=== PATIENT | male | born 1985 | race Caucasian/White ===

== ENCOUNTER 2017-05-26 21:18 | Emergency (ER) | payer OTHER ==
[~2017-05-26] VITALS: Ht 170.2 cm; Wt 119.9 kg
[~2017-05-26 21:18] MED LIST: COUGH & COLD S237 ML PO; DIAZEPAM5 MG PO; IBUPROFEN PM C1 EACH PO; IBUPROFEN800 MG PO; KEFLEX500 MG PO; LOVASTATIN10 MG PO; MOBIC15 MG PO; MOTRIN800 MG PO; NAPROSYN500 MG PO; NOHOMEMEDS; PERCOCET 5/31 TABLET PO; ULTRAM50 MG PO; VALIUM5 MG PO
[2017-05-26 22:02] LABS: HEMATOCRIT 46.4 % (38.0-50.0); MCH 28.2 PG (29.0-34.0); MCHC 33.8 G/DL (30.0-36.0); MCV 83.3 FL (86-99); MEAN PLAT.VOLUME 10.4 uM^3 (9.0-12.4); PLATELET COUNT 264 K/uL (156-360); RBC DIS.WIDTH-CV 12.5 % (11.8-14.6); RBC DIS.WIDTH-SD 37.8 % (39-53); RED BLOOD COUNT 5.57 M/uL (4.00-5.50); WHITE BLOOD COUNT 12.7 K/uL (4.1-10.2)
[2017-05-26 22:13] LABS: CHLORIDE 101 mEq/L (99-109); POTASSIUM 4.4 mEq/L (3.7-5.4); SODIUM 139 mEq/L (136-147)
[2017-05-26 22:14] LABS: GLUCOSE 112 mg/dL (70-99)
[2017-05-26 22:16] LABS: ANION GAP 13 MEQ/L (2-14)
[2017-05-26 22:18] LABS: GFR ESTIMATE (CALCULATED) > 59 mL/min/; SERUM ETHYL ALCOHOL < 10 mg/dL
[2017-05-26 22:20] LABS: UREA NITROGEN (BUN) 16 mg/dL (9-23)
[2017-05-26 22:21] LABS: SALICYLATE < 5.0 MG/DL (15-30)
[2017-05-26 23:08] VITALS: BP 132/99
[2017-05-26] MEDS ORDERED: MELOXICAM15 MG PO (23:08)
[2017-05-26] MEDS ORDERED: HYDROCODON-ACE1 EAC7 PO (23:08)
== END 2017-05-26 23:10 | disposition home or self-care (01) ==
LOC: EME 21:18
PROVIDERS: Emergency Medicine
DX: F32.9 Major depressive disorder, single episode, unspecified (principal); F43.25 Adjustment disorder with mixed disturbance of emotions and conduct; M54.9 Dorsalgia, unspecified; G89.29 Other chronic pain; Z79.891 Long term (current) use of opiate analgesic; E78.5 Hyperlipidemia, unspecified
CPT/HCPCS: 80048; 81003; 85027; 90839; 93005; 99281; 99285; G0480

== ENCOUNTER 2018-03-26 12:05 | Emergency (ER) | payer OTHER ==
[~2018-03-26] VITALS: Ht 170.2 cm; Wt 130.5 kg
[~2018-03-26 12:05] MED LIST changes: +HYDROCODON-ACE1 EAC7 PO; +MELOXICAM15 MG PO
[2018-03-26] MEDS ORDERED: NORCO 5/3251 TABLET PO (12:48)
[2018-03-26] MEDS ORDERED: KEFLEX500 MG PO (12:48)
[2018-03-26 13:10] VITALS: BP 130/91
== END 2018-03-26 13:11 | disposition home or self-care (01) ==
LOC: EME 12:05 → EXP 12:05
DX: S61.230A Puncture wound without foreign body of right index finger without damage to nail, initial encounter (principal); W29.8XXA Contact with other powered hand tools and household machinery, initial encounter; Y93.89 Activity, other specified
CPT/HCPCS: 99281; 99283; J0690